=== PATIENT | female | born 1965 | race Caucasian/White ===

== ENCOUNTER → 2024-11-20 | Day surgery (SDC) | payer MEDICAID ==
[~2024-11-20] VITALS: Ht 152.4 cm; Wt 58.5 kg
[~2024-11-20] MED LIST: BUPIVACAINE HCL/PF 0.5% (5MG/ML) 10ML ONE; CEFAZOLIN SODIUM 1000MG/VIAL ONE; FAMOTIDINE 20MG/2ML VIAL IV ONE; FENTANYL CITRATE/PF 50MCG/ML 2ML VIAL ONE; GLYCOPYRROLATE 0.2 MG/ML 2ML VIAL ONE; HYDROMORPHONE HCL/PF 1MG/ML INJ ONE; METOCLOPRAMIDE HCL 10MG/2ML VIAL ONE; MIDAZOLAM HCL 2 MG/2 ML VIAL ONE; NEOSTIGMINE METHYLSULFATE 1MG/ML 10 ML VIAL ONE; ONDANSETRON HCL 4MG/2ML INJ IV PRN; ONDANSETRON HCL 4MG/2ML INJ ONE; PROPOFOL 200MG/20ML VIAL IV ONE; ROCURONIUM BROMIDE 10MG/ML VIAL 5ML IV ONE; SKIN ADHESIVE 0.7 GM EA TOP ONE; SODIUM CHLORIDE 0.9% 1,000 ML IV SCH
[2024-11-20 08:03] LABS: UCG SCREEN NEGATIVE
[2024-11-20] MEDS: LACTATED RINGERS 1,000 ML IV SCH (08:42)
[2024-11-20 11:30] VITALS: BP 155/91; PULSE 62; RESP 15
[2024-11-20] MEDS: HYDROMORPHONE HCL/PF 1MG/ML INJ IV PRN (11:30)
[2024-11-20] MEDS: ACETAMINOPHEN 1000MG/100ML 100 ML IV SCH (11:39)
== END | disposition home or self-care (01) ==
LOC: OR 07:14 → EDBD 10:00
PROVIDERS: ATTEND Surgery
DX: K80.10 Calculus of gallbladder with chronic cholecystitis without obstruction (principal); F32.9 Major depressive disorder, single episode, unspecified; Z79.899 Other long term (current) drug therapy; Z98.890 Other specified postprocedural states
CPT/HCPCS: 47562; 81025; 88304; 93005; J3010; J0665; J0690; J1308; J3490 ×2; J2765; J2250; J2405; J2704; J1171; J7030; J2710; J0131